=== PATIENT | male | born 1955 | race Caucasian/White ===

== ENCOUNTER 2020-11-21 12:31 | Emergency (ER) | payer BC, SELFPAY ==
--- NOTE | ~2020-11-21 | CT_ITS ---
EXAMINATION: CT abdomen pelvis w con EXAM DATE: 11/21/2020 14:30 INDICATION: Abdominal pain. TECHNIQUE: Spiral CT of the abdomen and pelvis was performed following intravenous injection of 100 m L Omnipaque 350. Axial, coronal and sagittal images of the abdomen and pelvis were reviewed. The do se-length product (DLP) for this examination was 278.75 mGy-cm. The exposure was tailored according to patient size (auto mA exposure control), and iterative reconstruction (ASIR) was used as additiona l dose reduction technique. Correlation is made to CT chest 02/20/2019. FINDINGS: There is a moderate sized gastric paraesophageal hernia, the cardia is above the diaphragm, but the gastroesophageal junction is below the diaphragm. Multiple small liver cysts up to 1.3 cm. Spleen, adrenal glands, pancreas are unremarkable. There are cholecystectomy clips. There is a 3 mm stone in the left ureterovesicular junction with mild left hydroureteronephrosis, min imally delayed nephrogram. Portal and splenic veins are patent. Bilateral renal cysts. Mild prostato megaly. Some diffuse bladder wall thickening, could indicate chronic cystitis. Acute cystitis not ex cludable. There is no retroperitoneal or pelvic lymphadenopathy. There is mild scattered arteriosc lerotic disease. There are no findings to suggest appendicitis. The stomach and small bowel are unremarkable. There is expected amount of colonic stool. No free intraperitoneal gas. The heart is normal in size. T here are no pericardial or pleural effusions. There are no osteoblastic or osteolytic lesions identi fied. Fusion of the T11 and T12 vertebral bodies with moderate anterior wedging of T12 causing some k yphosis. There is chronic bilateral L5 spondylolysis with grade 2 anterolisthesis L5 on S1. There is moderate basilar emphysema. IMPRESSION: 1. Left UVJ 3 mm stone, mild obstructive nephropathy. 2. Moderate-sized paraesophageal hiatal hernia. 3. Other chronic findings. Reviewed, dictated and finalized at location B.
--- NOTE | ~2020-11-21 | XR_ITS ---
EXAMINATION: XR abdomen/kub 1V DATE: 11/21/2020 15:15 INDICATION: Left ureteral stone. TECHNIQUE: A supine view of the abdomen on 2 radiographs was obtained. COMPARISON: CT abdomen and pelvis 11/21/2020 FINDINGS: There are no dilated loops of bowel. There is contrast in the ureters and bladder. There is moderate left hydronephrosis and hydroureter. IMPRESSION: 1. Moderate left hydronephrosis and hydroureter. Reviewed, dictated and finalized at location A.
[2020-11-21 12:37] VITALS: BP 126/75; PULSE 88; RESP 18; O2SAT 98
[2020-11-21 13:00] LABS: Basophils Percent Auto 0.4 % (0.2-1.2); Eosinophils Absolute Auto 0.1 K/mm3 (0-0.3); Eosinophils Percent Auto 0.8 % (0-4.4); Hemoglobin 13.5 g/dL (14.0-18.0); Immature Granulocyte Absolute 0.04 K/mm3 (0.00-0.031); Immature Granulocyte Percent A 0.4 % (0-0.5); Immature Platelet Fraction Pct 3.8 % (0.9-11.2); Lymphocytes Absolute Auto 2.43 K/mm3 (0.9-3.2); Lymphocytes Percent Auto 25.7 % (18.3-44.2); Mean Corpuscular HGB Conc 32.9 g/dl (32-36); Mean Corpuscular Hemoglobin 29.2 pg (26-34); Mean Corpuscular Volume 88.6 fl (80-100); Mean Platelet Volume 10.1 fl (7.4-10.4); Monocytes Absolute Auto 0.8 K/mm3 (0.1-0.6); Neutrophils Absolute Auto 6.1 K/mm3 (1.3-6.7); Neutrophils Percent Auto 64.7 % (45.5-73.1); Platelet Count Result 224 k/mm3 (150-375); Red Blood Count 4.63 M/mm3 (4.6-6.20); Red Cell Distribution Width 12.8 % (11.5-14.5); White Blood Count 9.5 K/mm3 (4.5-10.0)
[2020-11-21 13:11] LABS: Alanine Aminotransferase 28 U/L (4-50); Albumin Level 4.2 g/dL (3.5-5.1); Alkaline Phosphatase 59 U/L (38-126); Anion Gap 7 mmol/L (8-16); Aspartate Amino Transferase 32 U/L (17-59); Bilirubin,Total 0.5 mg/dL (0.2-1.3); Blood Urea Nitrogen 17 mg/dL (9-20); Carbon Dioxide 26 mmol/L (22-30); Chloride 108 mmol/L (98-107); Estimated CRCL calculation 55 ml/min; Estimated Glomerular Filt Rate > 60; Glucose 123 mg/dL (75-110); Lipase 61 U/L (23-300); Potassium 3.6 mmol/L (3.4-5.0); Sodium 141 mmol/L (137-145)
[2020-11-21 13:35] LABS: Hypochromasia 1+ (NORMAL); Platelet Estimate Adequate (Adequate)
[2020-11-21 13:38] LABS: Add Urine Microscopic? YES; Appearance Urine Cloudy (Clear); Bilirubin Urine Negative (Negative); Blood Urine 3+ (Negative); Color Urine Yellow (Yellow); Glucose Urine UA Negative (Negative); Ketones Urine Negative (Negative); Leukocyte Esterase Ur Trace LEU/UL (Negative); Mucus Urine Heavy /lpf; Nitrate Urine Negative (Negative); Protein Urine 1+ mg/dL (Negative); RBC Urine >75 /hpf (0-2); Specific Grav Ur 1.024 (1.001-1.035); Squamous Epithelial Cell Urine Rare /hpf (Few); Urobilinogen Urine Negative mg/dL (<2.0); WBC Urine 16-20 /hpf
--- NOTE | 2020-11-21 13:41 | ED.ABDPAIN ---
HPI - Abdominal Pain General Chief Complaint: Abdominal Pain Stated Complaint: L Flank Pain Time Seen by Provider: 11/21/20 13:38 Source: RN notes reviewed History of Present Illness HPI narrative: Patient presents emergency room from home for left flank pain. Patient states pain began yesterday. Pain is located left flank does not radiate associated with nausea patient also notes some pain with urination yesterday denies any fevers or chills, chest pain, shortness of breath vomiting diarrhea or any other symptoms. States he took no pain medication today for the symptoms Related Data Allergies Allergy/AdvReac Type Severity Reaction Status Date / Time No Known Allergies Allergy Verified 11/21/20 13:42 Review of Systems Review of Systems: Narrative: Gen.: Denies fevers or chills ENT: Denies congestion Respiratory: Denies shortness of breath or cough CV: Denies chest pain or palpitations GI: Denies abdominal pain emesis or diarrhea. Reports nausea and left flank pain see HPI Musculoskeletal: Denies back pain or muscle pain Neuro: Denies numbness, tingling, weakness or focal weakness Skin: Denies rash Except as documented, all other systems reviewed and negative [facility] Past Medical History Medical History Benign neoplasm of colon Cataract (~06/2020) Dyslipidemia Hypertension Surgical History Surgical History (Updated 03/21/19 @ 13:38 by Vi Romero CMA) H/O hernia repair History of vasectomy Hx of cholecystectomy Family History Family History Mother Diabetes mellitus, Onset Age: 70 Family history of glaucoma, Onset Age: 70 Hypertension, Onset Age: 70 Family history of elevated blood lipids, Onset Age: 70 Cerebrovascular accident, Onset Age: 70 Father Family history of throat cancer Sibling Family history of throat cancer Social History Social History Smoking status: Current every day smoker Alcohol intake: never Gender identity (if verbalized by the patient): Male Exam Narrative: Exam Narrative: APPEARANCE: No acute distress, nontoxic, resting in bed EYES: EOMI HEENT: Normocephalic, atraumatic, OMM RESPIRATORY: No respiratory distress Clear to auscultation bilaterally with no rhonchi wheezing or rales. CARDIOVASCULAR: Regular rate and rhythm without murmurs rubs or gallops. ABDOMINAL: Soft, nontender, nondistended, no rebound or guarding or flank tenderness MUSCULOSKELETAl: Moves all extremities. No clubbing, cyanosis or edema. NEURO: Awake and alert. Following commands, speech normal, no focal deficits SKIN:: Warm, dry. No rashes lesions or abrasions PSYCHIATRIC: Normal affect/mood, Course Course Emergency Course: Patient states pain is resolved at this time Discussed with Dr. Yeboah presentation work-up at this time feels patient may be discharged with Bactrim started and follow-up as an outpatient Discussed with patient results of workup and diagnosis. Discussed need for follow-up with primary care, proper use of medication, and reasons to return to the emergency department. Patient understands and agrees to current treatment plan Vital Signs Vital signs: Vital Signs Pulse Rate 88 11/21/20 12:37 Respiratory Rate 18 11/21/20 12:37 Blood Pressure 126/75 11/21/20 12:37 Pulse Oximetry 98 11/21/20 12:37 Pulse Rate 88 11/21/20 12:37 Respiratory Rate 18 11/21/20 12:37 Blood Pressure 126/75 11/21/20 12:37 Pulse Oximetry 98 11/21/20 12:37 MDM - Abdominal Pain Lab Data Result diagrams: 11/21/20 12:46 11/21/20 12:46 Labs: Lab Results 11/21/20 11/21/20 11/21/20 Range/Units 12:46 12:46 13:03 WBC 9.5 (4.5-10.0) K/mm3 RBC 4.63 (4.6-6.20) M/mm3 Hgb 13.5 L (14.0-18.0) g/dL Hct 41.0 L (42.0-52.0) % MCV 88.6 (80-100) f
--- NOTE | 2020-11-21 14:06 | PC.NURSE ---
Normal saline infusing wide open. Toradol 30 mg IVP and Zofran 4 mg IVP given.
[2020-11-21] MEDS: KETOROLAC 30 MG/ML VIAL (*BKC) (14:11)
[2020-11-21] MEDS: ONDANSETRON INJ 4 MG/2 ML VIAL (14:11)
[2020-11-21] MEDS: SODIUM CHLORIDE 0.9% IV 1,000 ML 999 ML (14:12)
[2020-11-21] MEDS: TAMSULOSIN HCL 0.4 MG CAPSULE PO (15:20)
[2020-11-21] MEDS: CIPROFLOXACIN 500 MG TAB PO (15:59)
[2020-11-21 16:00] VITALS: BP 133/77; PULSE 77; RESP 16; O2SAT 99
== END 2020-11-21 16:01 | disposition home or self-care (01) ==
PROVIDERS: Emergency Medicine; Emergency Provider Emergency Medicine; PCP Family Medicine
DX: N20.0 Calculus of kidney (principal); N39.0 Urinary tract infection, site not specified; I10 Essential (primary) hypertension; I25.10 Atherosclerotic heart disease of native coronary artery without angina pectoris; E78.2 Mixed hyperlipidemia; F17.200 Nicotine dependence, unspecified, uncomplicated
CPT/HCPCS: 36415; 74018; 74177; 80053; 81001; 83690; 85025; 85055; 87086; 96361; 96374; 99284; A9270; J1885; J2405; J7030; Q9967

== ENCOUNTER 2021-01-17 13:40 | Emergency (ER) | payer BC, SELFPAY ==
[2021-01-17 13:49] VITALS: BP 108/68; PULSE 108; RESP 18; TEMP 36.5; O2SAT 99
--- NOTE | 2021-01-17 14:05 | ED.WOUNDLAC ---
HPI - Wound/Laceration General Chief Complaint: Skin/Abscess/Foreign Body Stated Complaint: Laceration on thumb Time Seen by Provider: 01/17/21 14:05 Source: patient Mode of arrival: ambulatory Limitations: no limitations History of Present Illness HPI narrative: 65-year-old male presents to the [facility] with right hand pain and swelling with redness. States he cut it with a piece of metal about 2 weeks ago. Was healing fine in the last couple days states that it became red and inflamed. Had put Prid on it started draining some pus. Has full range of motion. Sensation intact distal to infection. Capillary refill under 2 seconds Related Data Allergies Allergy/AdvReac Type Severity Reaction Status Date / Time No Known Allergies Allergy Verified 01/17/21 14:06 Review of Systems Review of Systems: All systems reviewed & are unremarkable except as noted in HPI and below Constitutional: Constitutional: Reports no additional constitutional complaints Eyes: Eyes: Reports no additional eye complaints ENT: Reports system reviewed and no additional complaints, except as documented Cardiovascular: Cardiovascular: Reports no additional cardiovascular complaints Respiratory: Respiratory: Reports no additional respiratory complaints Musculoskeletal: Musculoskeletal: Reports no additional musculoskeletal complaints Integumentary/Breasts: Skin/Breast: Reports as per HPI and Reports erythema (Right thumb base) Neurologic: Reports system reviewed and no additional complaints, except as documented Psychiatric: Psychiatric: Reports no additional psychiatric complaints Allergic/Immunologic: Allergic/Immunologic: Reports no additional allergic/immunologic complaints [facility] Past Medical History Medical History Benign neoplasm of colon Cataract (~06/2020) Dyslipidemia Hypertension Surgical History Surgical History H/O hernia repair History of vasectomy Hx of cholecystectomy Family History Family History Mother Diabetes mellitus, Onset Age: 70 Family history of glaucoma, Onset Age: 70 Hypertension, Onset Age: 70 Family history of elevated blood lipids, Onset Age: 70 Cerebrovascular accident, Onset Age: 70 Father Family history of throat cancer Sibling Family history of throat cancer Social History Social History Smoking status: Current every day smoker Alcohol intake: never Gender identity (if verbalized by the patient): Male Comments At the time of my signature, I reviewed and agree with the nursing past medical, surgical, social, and family history. There is no relevant family history pertinent to the patient complaint. Exam Const: General: healthy appearing, no acute distress and alert Nutritional Appearance: well nourished Orientation/consciousness: patient oriented x3 Limitations: no limitations HENMT: Head: normal to inspection Eyes: Conjunctivae: conjunctivae normal Pupils: Equal, round and reactive pupils present Neck: Neck: normal visual inspection Chest: Chest palpation & inspection: normal inspection of the chest Resp: Effort & Inspection: normal respiratory effort Auscultation: clear to auscultation bilaterally Cardio: Rate: regular rate Rhythm: regular rhythm Back/Spine/Pelvis: Back: no CVA tenderness Skin: Wounds: wounds noted (Draining clear serous fluid area dorsal right Thumb base) Neuro: General: patient oriented x3, moves all extremities, no meningeal signs and no focal motor deficits Speech: normal speech Gait exam (Neuro): Normal gait present Extrem: General: normal to inspection Psych: Appearance: grossly normal and well kempt Mental Status: mental status grossly normal Affect: normal affect Attitude: cooperative Thought content: Yes Normal thought con
[2021-01-17] MEDS: TETANUS,DIPHTHERIA,AC PERTUSSIS ADULT (0.5 ML) BOOSTRIX IM (14:25)
== END 2021-01-17 15:12 | disposition home or self-care (01) ==
PROVIDERS: Emergency Provider Nurse Practitioner; PCP Family Medicine
DX: L03.113 Cellulitis of right upper limb (principal); Z23 Encounter for immunization; F17.200 Nicotine dependence, unspecified, uncomplicated; E78.5 Hyperlipidemia, unspecified; I10 Essential (primary) hypertension; Z98.52 Vasectomy status
CPT/HCPCS: 90471; 90715; 99213; G0463

== ENCOUNTER 2021-03-11 08:48 | Outpatient (CLI) | payer BC, SELFPAY ==
--- NOTE | ~2021-03-11 | US_ITS ---
EXAMINATION: US aorta [facility] scr[facility] DATE: 03/11/2021 09:40 INDICATION: Current smoker TECHNIQUE: Grayscale, color Doppler, and pulsed Doppler images of the aorta and common iliac arteries were obtained. COMPARISON: 04/29/2009 FINDINGS: Maximum vascular dimensions are as follows: Proximal aorta: 1.8 cm Mid aorta: 1.6 cm Distal aorta: 1.4 cm Right common iliac artery: 1.0 cm Left common iliac artery: 1.0 cm There is no evidence of abdominal aortic aneurysm. IMPRESSION: 1. No sonographic evidence of abdominal aortic aneurysm. Reviewed, dictated and finalized at location B.
--- NOTE | ~2021-03-11 | CT_ITS ---
EXAMINATION: CT lung screening DATE: 03/11/2021 09:40 INDICATION: Personal history of nicotine dependence, current smoker with 30 pack year history TECHNIQUE: Computed tomography (CT) of the chest was performed without intravenous contrast. The dose -length product (DLP) was 68.76 mGy-cm. Automated exposure control and iterative reconstruction techn [employer] were employed. COMPARISON: 02/20/2019 FINDINGS: There is moderate emphysema. No suspicious pulmonary nodules are identified. The lungs are free of acute opacities. There is no pleural effusion or pneumothorax. Calcified pulmonary nodules an d calcified left hilar lymph nodes are consistent with old granulomatous disease. No pathologically e nlarged thoracic lymph nodes are identified. The heart size is normal. Cysts of the visualized liver measure up to 6 mm in the right hepatic lobe. The gallbladder is surgically absent. There is a 1.8 cm cyst of the right kidney. A chronic T12 compression fracture is unchanged. IMPRESSION: 1. Lung-RADS category 1: Negative. Continue annual screening with noncontrast low-dose chest CT in 12 months. Reviewed, dictated and finalized at location B. IMPRESSION: 1. Lung-RADS category 1: Negative. Continue annual screening with noncontrast l ow-dose chest CT in 12 months.
== END 2021-03-11 08:49 | disposition home or self-care (01) ==
PROVIDERS: PCP Family Medicine; Visit Provider Family Medicine
DX: E78.2 Mixed hyperlipidemia (principal); Z12.2 Encounter for screening for malignant neoplasm of respiratory organs; I25.10 Atherosclerotic heart disease of native coronary artery without angina pectoris; I25.84 Coronary atherosclerosis due to calcified coronary lesion; F17.210 Nicotine dependence, cigarettes, uncomplicated
CPT/HCPCS: 71271; 76706

== ENCOUNTER 2021-07-02 00:39 | Day surgery (SDC) | payer BC, SELFPAY ==
[2021-06-23 13:45] VITALS: BMI 21.0
--- NOTE | 2021-07-02 11:40 | PM.HPGS ---
History of Present Illness History of Present Illness Consent: Risks, benefits, and alternatives have been discussed and questions answered. Patient agrees to proceed with procedure. Chief complaint: neoplasm screening Narrative: Shay Cheng is a 65 year old male referred for colon cancer screening. Seven years ago he had 2 polyps removed Review of Systems Review of Systems: All systems reviewed & are unremarkable except as noted in HPI and below PMFSH Past Medical History Medical History Benign neoplasm of colon Cataract (~06/2020) Dyslipidemia Hypertension Surgical History Surgical History H/O hernia repair History of vasectomy Hx of cholecystectomy Family History Family History Mother Diabetes mellitus, Onset Age: 70 Family history of glaucoma, Onset Age: 70 Hypertension, Onset Age: 70 Family history of elevated blood lipids, Onset Age: 70 Cerebrovascular accident, Onset Age: 70 Father Family history of throat cancer Sibling Family history of throat cancer Social History Social History Smoking packs per day: 0.5 Smoking cigarettes per day: 10.0 Years smoked: 42 Smoking pack-years: 21.00 Smoking status: Current every day smoker Tobacco type: cigarettes Alcohol intake: current Drinks per week: 6 Substance use: current Substance use type: crack/cocaine and amphetamines Last use: AGE 24 Living arrangements: with friend(s) Gender identity (if verbalized by the patient): Male Spiritual care concerns: No Meds Home Medications and Allergies Home Medications Medication Instructions Recorded Confirmed Type amlodipine 10 mg PO DAILY 06/23/21 06/23/21 History benazepril-hydrochlorothiazide 1 tablet PO DAILY 06/23/21 06/23/21 History ezetimibe 10 mg PO DAILY 06/23/21 06/23/21 History pitavastatin calcium [Livalo] 4 mg PO DAILY 06/23/21 06/23/21 History Allergies Allergy/AdvReac Type Severity Reaction Status Date / Time No Known Allergies Allergy Verified 07/02/21 11:44 Exam Resp: Auscultation: clear to auscultation bilaterally Cardio: Rate: regular rate Rhythm: regular rhythm GI: GI Palp: Yes Soft to palpation and No Tenderness to palpation present (GI) Assessment and Plan Assessment and plan (1) Colon cancer screening: Code(s): Z12.11 - Encounter for screening for malignant neoplasm of colon Status: Acute Assessment and Plan: Colonoscopy with possible biopsy or polypectomy or cautery or injection of substances.
[2021-07-02 11:45] VITALS: BP 101/67; PULSE 65; RESP 18; TEMP 36.5; O2SAT 97
[2021-07-02] MEDS: LACTATED RINGERS 1,000 ML 150 ML IV CONT (12:07)
--- NOTE | 2021-07-02 12:39 | WPDANESEPPF ---
Anes - Initial Pre Proc Eval Procedure: Operation Date: 07/02/21 12:30 Proposed Procedures p Screening Colonoscopy - Victor M Sanchez MD Date/Time: 07/02/21 12:39 Surgeon: Victor M Sanchez MD Pre Op Diagnosis: neoplasm screening Patient Data Age: 65 Gender: M Height: 1.7 m Weight: 60.2 kg Last Vital Signs Temp 97.7 F 07/02/21 11:45 Pulse 65 07/02/21 11:45 Resp 18 07/02/21 11:45 BP 101/67 07/02/21 11:45 Pulse Ox 97 07/02/21 11:45 Allergies Allergy/AdvReac Type Severity Reaction Status Date / Time No Known Allergies Allergy Verified 07/02/21 11:44 Home Medications Medication Instructions Recorded Confirmed Type amlodipine 10 mg PO DAILY 06/23/21 06/23/21 History benazepril-hydrochlorothiazide 1 tablet PO DAILY 06/23/21 06/23/21 History ezetimibe 10 mg PO DAILY 06/23/21 06/23/21 History pitavastatin calcium [Livalo] 4 mg PO DAILY 06/23/21 06/23/21 History Patient hx anesthesia problems: none Family hx anesthesia problems: none Results Review: All pre-operative results and documents have been reviewed as part of the pre-operative evaluation. [facility] Past Medical History Medical History Benign neoplasm of colon Cataract (~06/2020) Dyslipidemia Hypertension Surgical History Surgical History H/O hernia repair History of vasectomy Hx of cholecystectomy Family History Family History Mother Diabetes mellitus, Onset Age: 70 Family history of glaucoma, Onset Age: 70 Hypertension, Onset Age: 70 Family history of elevated blood lipids, Onset Age: 70 Cerebrovascular accident, Onset Age: 70 Father Family history of throat cancer Sibling Family history of throat cancer Social History Social History Smoking packs per day: 0.5 Smoking cigarettes per day: 10.0 Years smoked: 42 Smoking pack-years: 21.00 Smoking status: Current every day smoker Tobacco type: cigarettes Alcohol intake: current Drinks per week: 6 Substance use: current Substance use type: crack/cocaine and amphetamines Last use: AGE 24 Living arrangements: with friend(s) Gender identity (if verbalized by the patient): Male Spiritual care concerns: No Anes - Eval Final PreProcedure Day of Procedure 07/02/21 12:39 Patient weight: normal Heart: regular rate and rhythm Lungs: clear to auscultation Airway: Mallampati scale class II Neurological: alert and oriented Last oral intake: >/= 8 hours ASA classification: II Emergent: no Anesthetic plan: proceed Anesthesia type and monitoring: general GIVS and standard monitoring Results Review: All pre-operative results and documents have been reviewed as part of the pre-operative evaluation. Informed Consent: The patient's anesthetic plan and its attendant risks and benefits were discussed with the patient/family/POA. Questions were solicited and answers provided to the satisfaction of the patient/family/POA.
[2021-07-02] MEDS: SIMETHICONE ORAL SUSPENSION 20 MG/0.3 ML 30 ML BOTTLE 0.6 ML IRRIGATION (12:46)
[2021-07-02 12:53] VITALS: BP 78/48; PULSE 54; RESP 18; O2SAT 97
[2021-07-02 13:03] VITALS: BP 89/49; PULSE 50; RESP 15; O2SAT 97
[2021-07-02 13:13] VITALS: BP 101/65; PULSE 50; RESP 17; O2SAT 100
== END 2021-07-02 13:22 | disposition home or self-care (01) ==
PROVIDERS: PCP Family Medicine; Visit Provider Internal Medicine Gastroenterology
PROC: 0DJD8ZZ Inspection of Lower Intestinal Tract, Via Natural or Artificial Opening Endoscopic (ICD-10-PCS; CPT 45378; principal; 2021-07-02 12:30)
DX: Z12.11 Encounter for screening for malignant neoplasm of colon (principal); I10 Essential (primary) hypertension; E78.5 Hyperlipidemia, unspecified; F17.210 Nicotine dependence, cigarettes, uncomplicated
CPT/HCPCS: 45378; J2704; J7120

== ENCOUNTER 2022-04-09 12:33 | Outpatient (CLI) | payer MEDICARE, SELFPAY ==
[2022-04-09 18:53] LABS: Basophils Absolute Auto 0.1 K/mm3 (0.0-0.1); Basophils Percent Auto 1.2 % (0.2-1.2); Eosinophils Absolute Auto 0.2 K/mm3 (0-0.3); Eosinophils Percent Auto 2.5 % (0-4.4); Hematocrit 45.2 % (42.0-52.0); Hemoglobin 14.9 g/dL (14.0-18.0); Immature Granulocyte Absolute 0.02 K/mm3 (0.00-0.031); Immature Granulocyte Percent A 0.3 % (0-0.5); Lymphocytes Absolute Auto 2.22 K/mm3 (0.9-3.2); Lymphocytes Percent Auto 30.3 % (18.3-44.2); Mean Corpuscular Hemoglobin 30.3 pg (26-34); Mean Corpuscular Volume 92.1 fl (80-100); Mean Platelet Volume 10.9 fl (7.4-10.4); Monocytes Absolute Auto 0.5 K/mm3 (0.1-0.6); Monocytes Percent Auto 6.4 % (2.6-8.5); Neutrophils Absolute Auto 4.3 K/mm3 (1.3-6.7); Neutrophils Percent Auto 59.3 % (45.5-73.1); Platelet Count Result 200 k/mm3 (150-375); Red Blood Count 4.91 M/mm3 (4.6-6.20); Red Cell Distribution Width 12.8 % (11.5-14.5); White Blood Count 7.3 K/mm3 (4.5-10.0)
[2022-04-09 19:00] LABS: Alanine Aminotransferase 26 U/L (6-50); Albumin Level 4.1 g/dL (3.5-5.1); Alkaline Phosphatase 69 U/L (38-126); Anion Gap 5 mmol/L (8-16); Aspartate Amino Transferase 72 U/L (17-59); Bilirubin,Total 0.7 mg/dL (0.2-1.3); Blood Urea Nitrogen 17 mg/dL (9-20); Calcium 9.5 mg/dL (8.4-10.2); Carbon Dioxide 31 mmol/L (22-30); Chloride 105 mmol/L (98-107); Cholesterol 139 mg/dL (0-200); Estimated Glomerular Filt Rate > 60; Glucose 76 mg/dL (65-110); HDL Direct 36 mg/dL; Potassium 4.4 mmol/L (3.4-5.0); Sodium 141 mmol/L (137-145); Triglycerides 118 mg/dL (<150)
[2022-04-09 19:26] LABS: Prostate Specific Antigen 1.1 ng/mL (< OR = 4.0)
[2022-04-09 20:05] LABS: LDL Cholesterol Direct 74 mg/dL
== END 2022-04-09 12:34 | disposition home or self-care (01) ==
LOC: ANHGOSHLAB 12:39
PROVIDERS: PCP Family Medicine; Visit Provider Family Medicine
DX: I25.10 Atherosclerotic heart disease of native coronary artery without angina pectoris (principal); I25.84 Coronary atherosclerosis due to calcified coronary lesion; J44.9 Chronic obstructive pulmonary disease, unspecified; Z12.5 Encounter for screening for malignant neoplasm of prostate
CPT/HCPCS: 36415; 80053; 80061; 84153; 85025; G0103

== ENCOUNTER 2022-04-22 15:02 | Outpatient (CLI) | payer MEDICARE, SELFPAY ==
--- NOTE | ~2022-04-22 | CT_ITS ---
EXAMINATION: CT lung screening DATE: 04/22/2022 15:15 INDICATION: Personal history of nicotine dependence, current smoker with 30 pack year history TECHNIQUE: Computed tomography (CT) of the chest was performed without intravenous contrast. The dose -length product (DLP) was 72.21 mGy-cm. Automated exposure control and iterative reconstruction techn [employer] were employed. COMPARISON: 03/11/2021 FINDINGS: There is moderate emphysema. There is a 2 mm nodule of the right upper lobe. The lungs are free of acute opacities. No pleural effusion or pneumothorax. There is a moderate-sized sliding hiata l hernia. No pathologically enlarged thoracic lymph nodes are identified. The heart size is normal. C alcified pulmonary nodules and calcified left hilar lymph nodes are consistent with old granulomatous disease. The gallbladder is surgically absent. The gallbladder is surgically absent. Cysts of the li [place] measure up to 1.3 cm. There is a 1.8 cm cyst of the right kidney. A chronic T12 compression fract ure is stable. IMPRESSION: 1. Lung-RADS category 2: Benign appearance or behavior. Continue annual screening with noncontrast lo w-dose chest CT in 12 months. Reviewed, dictated and finalized at location A. ROOM SUPERVISOR IMPRESSION: 1. Lung-RADS category 2: Benign appearance or behavior. Continue annual screeni ng with noncontrast low-dose chest CT in 12 months.
== END 2022-04-22 15:03 | disposition home or self-care (01) ==
PROVIDERS: PCP Family Medicine; Visit Provider Physician Assistant
DX: Z12.2 Encounter for screening for malignant neoplasm of respiratory organs (principal); F17.210 Nicotine dependence, cigarettes, uncomplicated
CPT/HCPCS: 71271

== ENCOUNTER 2022-06-02 14:02 | Outpatient (CLI) | payer MEDICARE, SELFPAY ==
[2022-06-02 20:03] LABS: Alanine Aminotransferase 20 U/L (6-50); Albumin Level 3.9 g/dL (3.5-5.1); Alkaline Phosphatase 63 U/L (38-126); Aspartate Amino Transferase 34 U/L (17-59); Bilirubin,Total 0.5 mg/dL (0.2-1.3)
[2022-06-02 20:52] LABS: Hepatitis C Virus Antibody Negative (Negative)
== END 2022-06-02 14:03 | disposition home or self-care (01) ==
LOC: ANHGOSHLAB 14:04
PROVIDERS: PCP Family Medicine; Visit Provider Physician Assistant
DX: Z11.59 Encounter for screening for other viral diseases (principal); R74.8 Abnormal levels of other serum enzymes
CPT/HCPCS: 36415; 80076; 86803

== ENCOUNTER 2023-05-04 14:37 | Outpatient (CLI) | payer MEDICARE, SELFPAY ==
--- NOTE | ~2023-05-04 | CT_ITS ---
EXAMINATION:CT lung screening DATE: 05/04/2023 15:01 INDICATION: Nicotine dependence, unspecified, uncomplicated. Current smoker with 27 pack year history . TECHNIQUE: Computed tomography (CT) of the chest was performed without intravenous contrast. Automate d exposure control and iterative reconstruction technique were employed. The dose-length product (DLP ) was 90.12 mGy-cm. COMPARISON: Chest CT 04/22/2022 FINDINGS: There is mild scarring at the lung apices. There is moderate emphysema. Calcified bilateral lung nodules and calcified left hilar lymph nodes are consistent with old granulomatous disease. No pleural effusion. The heart size is normal. There are coronary artery calcifications. There is a inside upholsterer cha trace pericardial effusion. There is a moderate-sized sliding hiatal hernia. Aortic atheroscleros is is noted. There are cysts in the kidneys measuring up to 3.1 cm on the left. There is a 3 mm stone in left kidney. There are cysts in the liver measuring up to 11 mm. There are changes of cholecystec kolton. There is moderate thoracic spondylosis. There are chronic compression fractures of T7 and T12. IMPRESSION: 1. Lung-RADS category 2: Benign appearance or behavior. Continue annual screening with noncontrast lo w-dose chest CT in 12 months. Reviewed, dictated and finalized at location E. SACTION MANAGER IMPRESSION: 1. Lung-RADS category 2: Benign appearance or behavior. Continue annual screeni ng with noncontrast low-dose chest CT in 12 months.
== END 2023-05-04 14:38 | disposition home or self-care (01) ==
PROVIDERS: PCP Family Medicine; Visit Provider Nurse Practitioner Family
DX: Z12.2 Encounter for screening for malignant neoplasm of respiratory organs (principal); F17.210 Nicotine dependence, cigarettes, uncomplicated
CPT/HCPCS: 71271

== ENCOUNTER 2023-08-26 09:14 | Outpatient (CLI) | payer MEDICARE, SELFPAY ==
--- NOTE | ~2023-08-26 | US_ITS ---
US arterial ankle brachial ind INDICATION: Bilateral cold feet. Elevated cholesterol TECHNIQUE: Segmental pressures and plethysmographic and Doppler waveforms of the brachial and lower e xtremity arteries were obtained. COMPARISON: None. FINDINGS: Right and left brachial artery pressures of 107 mm Hg and 109 mm Hg, respectively, are concordant (no rmal difference <= 30 mmHg). The right ankle-brachial index (JOSE) is 1.2 (normal >= 0.9-1.0). The right great toe-brachial index ( TBI) is 0.75 (normal >= 0.60). The left JOSE is 1.19. The left TBI is 0.58. IMPRESSION: 1. Normal bilateral ankle-brachial indices. Mildly decreased left toe brachial index measuring 0.58. Reviewed, dictated and finalized at location B.
== END 2023-08-26 09:15 | disposition home or self-care (01) ==
PROVIDERS: PCP Family Medicine; Visit Provider Family Medicine
DX: I73.9 Peripheral vascular disease, unspecified (principal)
CPT/HCPCS: 93922

== ENCOUNTER 2024-05-04 13:19 | Outpatient (CLI) | payer MEDICARE, SELFPAY ==
--- NOTE | ~2024-05-04 | CT_ITS ---
EXAMINATION: CT lung screening DATE: 05/04/2024 13:40 INDICATION: Hx nicotine dependence TECHNIQUE: Computed tomography (CT) of the chest was performed without intravenous contrast. Addition al 3D reconstructions utilizing coronal maximum intensity projection (MIP) were performed. Automated exposure control and iterative reconstruction technique were employed. The dose-length product was 83 .53 mGy-cm. COMPARISON: 05/04/2023 FINDINGS: Moderate to severe upper lung predominant emphysema. There are few scattered very small bilateral tashi cified pulmonary nodules along with calcified left hilar lymph nodes consistent with old granulomatou s disease. There are couple <2 mm nodules in the right lung which are not clearly calcified. No pneum onia, pulmonary edema or pleural effusion. Heart size is normal. Small pericardial effusion. Thoracic aorta is normal in caliber. No pathologically enlarged thoracic lymphadenopathy. Moderate-sized slid ing-type hiatal hernia. Moderate thoracic spondylosis with chronic T7 and T12 compression fractures. IMPRESSION: 1. Lung-RADS category 2: Benign appearance or behavior. Continue annual screening with noncontrast lo w-dose chest CT in 12 months. Reviewed, dictated and finalized at location B. ET AIRCRAFT TECHNICIAN IMPRESSION: 1. Lung-RADS category 2: Benign appearance or behavior. Continue annual screeni ng with noncontrast low-dose chest CT in 12 months.
== END 2024-05-04 13:20 | disposition home or self-care (01) ==
LOC: GOSHIMG 13:20
PROVIDERS: PCP Family Medicine; Visit Provider Family Medicine
DX: Z12.2 Encounter for screening for malignant neoplasm of respiratory organs (principal); Z87.891 Personal history of nicotine dependence
CPT/HCPCS: 71271

== ENCOUNTER 2024-11-24 00:02 | Day surgery (SDC) | payer MEDICARE, SELFPAY ==
[2024-11-13 11:25] VITALS: BMI 23.5
--- OUTSIDE RECORDS SUMMARY | 2024-11-24 00:07 | XMS_ITS | Clinical Summary ---
Author Organization [facility] Address [address] [place] [id number] Care Team Providers Care Manufacturing Process Engineer Name Role Phone Unavailable Primary Care Provider Unavailabl e Social History Tobacco Use Types Packs/Day Years Used Date Smoking Tobacco: Never Assessed Sex and Gender Information Value Date Recorded Sex Assigned at Not on file Legal Sex Male 4:37 PM CDT Gender Identity Not on file Sexual Orientation Not on file Plan of Treatment Health Maintenance Due Date Last Done Comments Colorectal Cancer Screening Colonoscopy (10 Years) 1954 Hepatitis C 1972 DTaP, Tdap and Td Vaccines ( 1 - Tdap) 1973 Pneumococcal Vaccine: 50+ Ye ars (1 of 1 - PCV) 2004 Zoster Vaccines (1 of 2) 2004 COVID-19 Vaccine ( - 2023-2 5 season) 2024 RSV Immunization or 60+ Years (1 - 1-dose 75+ series) 2029 Meningococcal B Vaccine Aged Out No l onger eligible based on patient's age to complete this topic Meningococcal Vaccine Aged Out No irasema reed eligible based on patient's age to complete this topic RSV Immunizations Under 20 Months Aged Out No longer eligible based on patient's age to complete this topic
--- OUTSIDE RECORDS SUMMARY | 2024-11-24 00:07 | XMS_ITS | Clinical Summary ---
Author Organization [facility] Address [address] [place] [address] Care Team Providers Care Batch Operator Name Role Phone Unavailable Primary Care Provider Unavailabl e Source Comments [facility] [place],non-owned Affiliates and Associated Physician Practices is amultiple site organization consisting of ambulatory clinics and hospital sitesin [place], [place], [place] and [place]. This disclosure is being madepursuant to the Care Everywhere program and may not contain all information available regarding this patient. Last updated 18.[facility] [place] Allergies No known active allergies Medications * Be aware that medications may not be up to date on this document. Alwaysverify current medications with the patient. VICODIN PO Take by mouth. Active FLEXERIL PO Take by mouth. Active NAPROXEN PO Take by mouth. Active EX-LAX PO Take by mouth. Active FIBERCON PO Take by mouth. Active ZYRTEC PO Take by mouth. 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 Gender Identity Not on file Sexual Orientation Not on file Last Filed Vital Signs Vital Sign Reading Time Taken Comments Blood Pressure - - Pulse - - Temperature - - Respiratory Rate - - Oxygen Saturation - - Inhaled Oxygen Concentration - - Weight 70.3 kg (155 lb) 11/27/2009 9:42 PM CDT Height 170.2 cm (5' 7) 11/27/2009 9:42 PM CDT Body Mass Index 24.28 11/27/2009 9:42 PM CDT Plan of Treatment Health Maintenance Due Date Last Done Comments COLOGUARD (AGES 45-75) - COL ON CA SCREENING 1955 COLON MONITORING 1955 COLONOSCOPY - COLON CA SCREENING 1954 CT COLONOGRAPHY - COLON CA SCREENING 1955 Colorectal Cancer Screening 1955 FIT - COLON CA SCREENING 1954 FLEX SIG - COLON CA SCREENING 1954 LIPID TESTING 1955 HEPATITIS C SCREENING 12/01/1972 DTAP/TDAP/TD VACCINES (1 - Tdap) 1973 PNEUMOCOCCAL VACCINE 50+ (1 of 1 - PCV) 2004 ZOSTER VACCINE (1 of 2) 2004 AAA SCREENING 12/07/2019 COVID-19 VACCINE (1 - 2023-2 5 season) 2024 DEPRESSION SCREENING 05/10/2024 INFLUENZA VACCINE (#1) 2025 Respiratory Syncytial Virus (RSV) Vaccine Pt: or over 60 yrs (1 - 1-dose 75+ series) 2029 HEPATITIS B VACCINE Aged Out No longe r eligible based on patient's age to complete this topic HIB VACCINE Aged Out No longer eligi ble based on patient's age to complete this topic HPV VACCINE Aged Out No longer eligi ble based on patient's age to complete this topic MENINGOCOCCAL (Group B) VACC INE SHARED DECISION-MAKING Aged Out No longer eligibl e based on patient's age to complete this topic MENINGOCOCCAL GROUPS A/C/Y/W VACCINE Aged Out No longer eligible b ased on patient's age to complete this topic
--- OUTSIDE RECORDS SUMMARY | 2024-11-24 00:07 | XMS_ITS | Clinical Summary ---
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
--- OUTSIDE RECORDS SUMMARY | 2024-11-24 00:07 | XMS_ITS | Referral Summary ---
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
--- OUTSIDE RECORDS SUMMARY | 2024-11-24 00:07 | XMS_ITS | Continuity of Care Document ---
Author Organization [facility] Address [address] [place] [address] Phone Care Team Providers Care Prosthetic Technician Name Role Phone Rozina Carranza Unavailable Unavailable Advance Directives Directive Yes / No Effective Date File Name No Information Encounters Encounter Description Practice Location Reason(s) For Visit Diagnoses Date Provider Providers Copied on Encounter [facility], [address], [place], [place], [id number], [place] tel:[phone] [facility] No Information [address] Handy. [address] , [address], [place], [address], [place]. tel:[phone] Family History Family Member Type Diagnosis Age At Onset No Information Payers Payer name Insurance type Covered republican ID Authoriza tion(s) No Information Social History Type Description Quantity Date Captured Comments Sex Male Smoking Status No Information Chief Complaint And Reason For Visit No Information Reason For Referral Reason For Referral No Information History Of Present Illness Encounter Date Complaint History Of Prese nt Illness No Information Functional Status Date Functional Assessmen t No Information Instructions Date Instruction Additional Infor mation No Information Assessments Type Assessment Date No Information Patient Care Teams Name Effective Dates (start - stop) Status Members No Information
--- NOTE | 2024-11-24 11:46 | P.PNAN_ITS ---
Anes - Initial Pre Proc Eval Procedure: Operation Date: 11/24/24 13:00 Proposed Procedures p Esophagogastroduodenoscopy - Alfonso Aggarwal MD Date/Time: 11/24/24 11:46 Surgeon: Alfonso Aggarwal MD Pre Op Diagnosis: Dysphagia, unspecified Patient Data Age: 68 Gender: M Height: 1.7 m Weight: 68.1 kg Allergies Allergy/AdvReac Type Severity Reaction Status Date / Time No Known Allergies Allergy Verified 11/24/24 12:24 Home Medications ?Medication ?Instructions ?Recorded ?Confirmed ?Type benazepril 20 1 tablet PO DAILY #90 tabs 08/27/23 11/24/24 Rx mg-hydrochlorothiazide 12.5 mg tablet cetirizine 10 mg capsule (Zyrtec) 10 mg PO DAILY PRN allergy symptoms 10/21/23 11/24/24 History rosuvastatin 10 mg tablet See Rx Instructions .Route 11/07/24 11/24/24 Rx .COMPLEX #90 tabs ezetimibe 10 mg tablet 10 mg PO DAILY #90 tabs 11/21/24 11/24/24 Rx Patient hx anesthesia problems: none Family hx anesthesia problems: none Results Review: All pre-operative results and documents have been reviewed as part of the pre- operative evaluation. [facility] Past Medical History Medical History Obstructive nephropathy Left ureteral stone Cataract (~06/2020) Benign neoplasm of colon Dyslipidemia Hypertension Surgical History Surgical History History of vasectomy Hx of cholecystectomy H/O hernia repair Family History Family History Mother Diabetes mellitus, Onset Age: 70 Family history of glaucoma, Onset Age: 70 Hypertension, Onset Age: 70 Family history of elevated blood lipids, Onset Age: 70 Cerebrovascular accident, Onset Age: 70 Father Family history of throat cancer Sibling Stomach cancer Social History Social History Smoking packs per day: 0.5 Smoking cigarettes per day: 10.0 Years smoked: 55 Smoking pack-years: 27.50 Smoking status: Current every day smoker Tobacco type: cigarettes Alcohol intake: current Drinks per week: 2 Substance use: former Substance use type: does not use Last use: AGE 24 Do You Feel Safe in your Home?: Yes Lack of Transportation: No Lack of Food: Never True Current Housing: I Have Housing Concerned About Future Housing: No Difficulty Paying Gas/Electric Bills: No Difficulty Paying for Meds: No Currently Unemployed: No Education: High School Diploma/GED Difficulty w/ Childcare or Family Care: No Living arrangements: with family Gender identity (if verbalized by the patient): Male Spiritual care concerns: No Anes - Eval Final PreProcedure Day of Procedure 11/24/24 11:46 Patient weight: normal Heart: regular rate and rhythm Lungs: normal air movement Airway: Mallampati scale class II Neurological: alert and oriented Last oral intake: 6 hours ASA classification: II Emergent: no Anesthetic plan: proceed Anesthesia type and monitoring: general GIVS Results Review: All pre-operative results and documents have been reviewed as part of the pre- operative evaluation. Informed Consent: The patient's anesthetic plan and its attendant risks and benefits were discussed with the patient/family/POA. Questions were solicited and answers provided to the satisfaction of the patient/family/POA.
[2024-11-24 12:18] VITALS: BP 109/63; PULSE 52; RESP 16; TEMP 36.3; O2SAT 99; BMI 23.6
[2024-11-24] MEDS: LACTATED RINGERS 1,000 ML 150 ML IV CONT (12:35)
--- NOTE | 2024-11-24 13:00 | PM.HPGS ---
History of Present Illness History of Present Illness Consent: Risks, benefits, and alternatives have been discussed and questions answered. Patient agrees to proceed with procedure. Chief complaint: Dysphagia, unspecified Narrative: Shay Cheng is a 68 year old male here for first egd, for last 2 months noted pills getting stuck at throat Review of Systems Review of Systems: All systems reviewed & are unremarkable except as noted in HPI and below PMFSH Past Medical History Medical History Obstructive nephropathy Left ureteral stone Cataract (~06/2020) Benign neoplasm of colon Dyslipidemia Hypertension Surgical History Surgical History History of vasectomy Hx of cholecystectomy H/O hernia repair Family History Family History Mother Diabetes mellitus, Onset Age: 70 Family history of glaucoma, Onset Age: 70 Hypertension, Onset Age: 70 Family history of elevated blood lipids, Onset Age: 70 Cerebrovascular accident, Onset Age: 70 Father Family history of throat cancer Sibling Stomach cancer Social History Social History Smoking packs per day: 0.5 Smoking cigarettes per day: 10.0 Years smoked: 55 Smoking pack-years: 27.50 Smoking status: Current every day smoker Tobacco type: cigarettes Alcohol intake: current Drinks per week: 2 Substance use: former Substance use type: does not use Last use: AGE 24 Do You Feel Safe in your Home?: Yes Lack of Transportation: No Lack of Food: Never True Current Housing: I Have Housing Concerned About Future Housing: No Difficulty Paying Gas/Electric Bills: No Difficulty Paying for Meds: No Currently Unemployed: No Education: High School Diploma/GED Difficulty w/ Childcare or Family Care: No Living arrangements: with family Gender identity (if verbalized by the patient): Male Spiritual care concerns: No Meds Home Medications and Allergies Home Medications ?Medication ?Instructions ?Recorded ?Confirmed ?Type benazepril 20 1 tablet PO DAILY #90 tabs 08/27/23 11/24/24 Rx mg-hydrochlorothiazide 12.5 mg tablet cetirizine 10 mg capsule (Zyrtec) 10 mg PO DAILY PRN allergy symptoms 10/21/23 11/24/24 History rosuvastatin 10 mg tablet See Rx Instructions .Route 11/07/24 11/24/24 Rx .COMPLEX #90 tabs ezetimibe 10 mg tablet 10 mg PO DAILY #90 tabs 11/21/24 11/24/24 Rx Allergies Allergy/AdvReac Type Severity Reaction Status Date / Time No Known Allergies Allergy Verified 11/24/24 12:24 Vital Signs Vital Signs - 24 hr 11/24/24 12:18 Temperature 97.4 F L Pulse Rate 52 L Respiratory Rate 16 Blood Pressure 109/63 Pulse Oximetry 99 Oxygen Delivery Room Air Exam Const: General: comfortable and no acute distress HENMT: Face/Nose/Sinus: Normal nares present Eyes: General: appearance normal, both eyes and all related structures Neck: Neck: no JVD Resp: Auscultation: clear to auscultation bilaterally Cardio: Rate: regular rate Rhythm: regular rhythm GI: Inspection: non-distended GI Palp: Yes Soft to palpation Skin: General skin exam: normal color Neuro: Speech: normal speech Extrem: General: normal to inspection Psych: Mental Status: mental status grossly normal Assessment and Plan Assessment and plan (1) Dysphagia: Qualifiers: Dysphagia type: pharyngoesophageal phase Qualified Code(s): R13.14 - Dysphagia, pharyngoesophageal phase Code(s): R13.10 - Dysphagia, unspecified Status: Acute Assessment and Plan: egd
--- NOTE | 2024-11-24 13:10 | S_PTH ---
PATIENT: Shay Cheng LOC: [facility] Younger#:[id number] AGE/SX: 68/M ROOM: RE11/24/[address]: Alfonso Aggarwal MD : 1955 BED: DIS: 11/24/2024 SPEC #: [id number] RECD: 11/27/24 07:46 STATUS: RUCHI REGarcía #: [id number] SHAGUFTA: 11/24/24 13:[address]: Alfonso Aggarwal DEPT: [facility] Surgical RECD BY: Monica Moe ENTERED: 11/27/24 07:46 SP TYPE: Surgical OTHR DR: Chloé Wagner MD Tissues: A - Esophageal Biopsy Procedures: Hematoxylin and Eosin Stain Gross and Microscopic Level 4
[2024-11-24 13:14] VITALS: BP 101/52; PULSE 61; RESP 24; O2SAT 95
[2024-11-24 13:24] VITALS: BP 94/58; PULSE 61; RESP 15; O2SAT 97
[2024-11-24 13:38] VITALS: BP 110/66; PULSE 50; RESP 12; O2SAT 99
[2024-11-24 13:40] VITALS: BP 121/71; PULSE 58; RESP 19; O2SAT 100
== END 2024-11-24 13:44 | disposition home or self-care (01) ==
PROVIDERS: PCP Family Medicine; Referring Provider Family Medicine; Visit Provider Internal Medicine Gastroenterology
PROC: 0DJ08ZZ Inspection of Upper Intestinal Tract, Via Natural or Artificial Opening Endoscopic (ICD-10-PCS; CPT 43249; principal; 2024-11-24 13:00)
DX: K22.70 Barrett's esophagus without dysplasia (principal); R13.10 Dysphagia, unspecified; K22.2 Esophageal obstruction; F17.210 Nicotine dependence, cigarettes, uncomplicated
CPT/HCPCS: 43249; 88305; J2003; J2704; J7120

== ENCOUNTER 2025-05-08 09:47 | Outpatient (CLI) | payer MEDICARE, SELFPAY ==
--- NOTE | ~2025-05-08 | CT_ITS ---
EXAMINATION:CT lung screening DATE: 05/08/2025 10:01 INDICATION: Nicotine dependence, cigarettes, uncomplicated. TECHNIQUE: Computed tomography (CT) of the chest was performed without intravenous contrast. Automated exposure control and iterative reconstruction technique were employed. The dose-length product (DLP) was 90.80 mGy-cm. COMPARISON: Chest CT 05/04/2024 FINDINGS: There is severe emphysema. There are a few 1-2 mm nodules in the lungs. Calcified bilateral lung nodules and calcified hilar lymph nodes are consistent with old granulomatous disease. No pleural effusion. The heart size is normal. There are coronary artery calcifications. There is a small per icardial effusion, stable from 05/04/2024. There is a moderate-sized sliding hiatal hernia. There are cysts in the liver measuring up to 11 mm. There are changes of cholecystectomy. There are cysts in the kidneys measuring up to 3.5 cm on the left. There is mild thoracic spondylosis. There are chronic compression fractures of T7 and T12. IMPRESSION: 1. Lung-RADS category 2: Benign appearance or behavior. Continue annual screening with noncontrast low-dose chest CT in 12 months. Reviewed, dictated and finalized at location E. T PRESS OPERATOR IMPRESSION: 1. Lung-RADS category 2: Benign appearance or behavior. Continue annual screeni ng with noncontrast low-dose chest CT in 12 months.
--- OUTSIDE RECORDS SUMMARY | 2025-05-08 10:12 | XMS_ITS | Clinical Summary ---
Author Organization [facility] Address [address] [place] [address] Care Team Providers Care Schedule Supervisor Name Role Phone Unavailable Primary Care Provider [...] of 2) 2004 COVID-19 Vaccine ( - 2024-2 6 season) 2025 Influenza Adult (#1) 2025 RSV Immunization or 60+ Years (1 - 1-dose 75+ series) 2029 Hepatitis A Vaccines Aged Out No long er eligible based on patient's age to complete this topic Meningococcal B Vaccine Aged Out No l onger eligible based on patient's age to complete this topic Meningococcal Vaccine Aged Out No irasema reed eligible based on patient's age to complete this topic RSV Immunizations Under 20 Months Aged Out No longer eligible based on patient's age to complete this topic
--- OUTSIDE RECORDS SUMMARY | 2025-05-08 10:12 | XMS_ITS | Clinical Summary ---
Author Organization 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
--- OUTSIDE RECORDS SUMMARY | 2025-05-08 10:12 | XMS_ITS | Clinical Summary ---
Author Organization [facility] Address [address] [place] [address] Care Team Providers Care Home Care Rn Name Role Phone Unavailable Primary Care Provider Unavailabl e Source Comments [facility],non-owned Affiliates and Associated Physician Practices is amultiple site organization consisting of ambulatory clinics and hospital sitesin [place], [place], [place] and [place]. This disclosure is being madepursuant to the Care Everywhere program and may not contain all information available regarding this patient. 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 Gender Identity Not on file Sexual Orientation [...] Tdap) 1973 PNEUMOCOCCAL VACCINE 50+ (1 of 2 - PCV) 1973 ZOSTER VACCINE (1 of 2) 2004 AAA SCREENING 12/07/2019 DEPRESSION SCREENING 05/10/2024 MEDICARE AWV CALENDAR YEAR 2024 COVID-19 VACCINE (1 - 2024-2 6 season) 2025 INFLUENZA VACCINE (#1) 2025 Respiratory Syncytial Virus [...] on patient's age to complete this topic Insurance [employer] MEDICARE ADV SELF PAY NO INSURANCE Member Subscriber Plan / Payer (Ef fective for All Dates) Name:Shay Cleary Member ID:Not on file Relation to Subscriber:Not on file Name:SHAY CLEARY Subscriber ID:Not on file (Home) Address: [address] [place] [phone] Payer ID:Not on file Group ID:Not on file Type:Self Pay Address: [place], [place]
== END 2025-05-08 09:48 | disposition home or self-care (01) ==
PROVIDERS: PCP Family Medicine; Visit Provider Family Medicine
DX: Z12.2 Encounter for screening for malignant neoplasm of respiratory organs (principal); Z87.891 Personal history of nicotine dependence
CPT/HCPCS: 71271